=== PATIENT | female | born 1975 | race Caucasian/White ===

== ENCOUNTER 2016-05-14 23:45 | Emergency (ER) | payer OTHER ==
--- NOTE | ~2016-05-14 | CR72 ---
[facility]. [facility] A Service of [facility] & [facility] RADIOLOGY TEXT RESULTS PATIENT: DANDY ESTES LOCATION: SED : 75 UNIT #: [id number] AGE: [address]: Willie Gonzalez MD SEX: F ORDER DR: [id number] [address] [address] [id number] E MR#: [id number] Acc #: [id number] NAME: DANDY ESTES : 1975 SEX: F STUDY DATE/TIME: 05/15/2016 0:48 UNIT: SED ROOM: STUDY DESCRIPTION: CR Chest Single View Portable Attending Physician: Willie Gonzalez M.D. Ordering Physician: Willie Gonzalez M.D. Primary Care Physician: Primary Care Physician No MEDICAL IMAGING REPORT This report is preliminary unless electronic signature is present. EXAM AP portable chest 05/15/2016 00:48 HISTORY Dizziness, headache, nausea for 1 day. Fell off toilet 30 minutes prior to arrival. Right side head pain. COMPARISON None. FINDINGS A single AP portable view of the chest shows both lungs to be clear. The heart is normal in size. The mediastinal contour is normal. No significant bone abnormalities are seen. IMPRESSION Normal portable chest. Dictated by... Sherrill Hyde M.D. THIS IS AN ELECTRONICALLY VERIFIED REPORT Sherrill Hyde M.D. at 05/16/2016 1:51 AM MG/marilia TD: 05/15/2016 11:10 JOB #: [id number] MEDICAL IMAGING REPORT
--- NOTE | ~2016-05-14 | EKG ---
PATIENT: DANDY ESTES UNIT #: [id number] Ventricular Rate: 74 BPM Atrial Rate: 74 BPM P-R Interval: 160 ms QRS Duration: 80 ms Q-T Interval: 404 ms QTC Calculation(Bezet): 448 ms P Stevenson: 70 degrees Calculated R Stevenson: 46 degrees Calculated T Stevenson: 41 degrees Diagnosis Line: Normal sinus rhythm Diagnosis Line: Normal ECG Diagnosis Line: When compared with ECG of 06-MAR-2016 08:23, Diagnosis Line: No significant change was found Diagnosis Line: Confirmed by ABELARDO WALLACE MD ([id number]) on Diagnosis Line: 05/16/2016 11:22:00 AM INTERPRETING MD: MADISON ZAMARRIPA
--- NOTE | ~2016-05-14 | CT71 ---
[facility] A Service [facility] RADIOLOGY TEXT RESULTS PATIENT: DANDY ESTES LOCATION: SED : 75 UNIT #: [id number] AGE: [address]: Willie Gonzalez MD SEX: F ORDER DR: [id number] [place] [id number] E MR#: [id number] Acc #: [id number] NAME: DANDY ESTES : 1975 SEX: F STUDY DATE/TIME: 05/15/2016 0:45 UNIT: SED ROOM: STUDY DESCRIPTION: CT Head Wo Contrast Attending Physician: Willie Gonzalez M.D. Ordering Physician: Willie Gonzalez M.D. Primary Care Physician: No Primary Care Physician MEDICAL IMAGING REPORT This report is preliminary unless electronic signature is present. EXAM Noncontrast CT head. DATE 05/15/2016 at 0045 HISTORY 41-year-old female with dizziness, headache, nausea for 1 day. Fell off toilet 30 minutes prior to arrival. Right side head pain. COMPARISON None TECHNIQUE Axial noncontrast images were obtained from the skull base to the vertex. This CT exam was performed with one or more of the following radiation dose reduction techniques: automatic exposure control, adjustment of mA and/or kV according to patient size, and iterative reconstruction. FINDINGS Ventricular size and configuration are normal. There is no evidence of acute infarct or hemorrhage. There are no extraaxial fluid collections. No mass lesion or mass effect is seen. There are no skull fractures. IMPRESSION Normal noncontrast head CT. Dictated by... Sherrill Hyde M.D. [facility] A Service [facility] RADIOLOGY TEXT RESULTS PATIENT: DANDY ESTES LOCATION: SED : 75 UNIT #: [id number] AGE: [address]: Willie Gonzalez MD SEX: F ORDER DR: THIS IS AN ELECTRONICALLY VERIFIED REPORT Sherrill Hyde M.D. at 05/16/2016 1:51 AM MG/jaun TD: 05/15/2016 11:24 JOB #: [id number] MEDICAL IMAGING REPORT
[~2016-05-14 23:45] MED LIST: AMOXICILLIN PO; BACTRIM DS TABL1 TA1 PO; CYMBALTA; NO MEDICATIONS; PERCOCET 5-3251 TAB PO
[2016-05-15 00:20] LABS: BASOPHIL# 0.1 X10e3 (0-0.3); BASOPHIL% 0.7 % (0-2.5); EOSINOPHIL# 0.2 X10e3 (0-0.7); EOSINOPHIL% 2.8 % (0.0-7.0); HEMATOCRIT 36.7 % (35.0-45.0); HEMOGLOBIN 12.8 gm/dL (12.0-16.0); LYMPHOCYTE# 2.1 X10e3 (1.0-3.5); LYMPHOCYTE% 25.8 % (17.0-45.0); MEAN CELL VOLUME 89.5 FL (83-96); MEAN CORPUSCULAR HEMOGLOBIN 31.3 PG (28-34); MEAN CORPUSCULAR HGB CONC 34.9 g/dL (30-36); MEAN PLATELET VOLUME 7.3 FL (6.5-11.5); MONOCYTE# 0.8 X10e3 (0-1.0); MONOCYTE% 10.2 % (3.0-12.0); NEUTROPHIL% 60.5 % (40-75); PLATELET COUNT 377 X10e3 (140-420); RED CELL DISTRIBUTION WIDTH 12.7 % (11.0-15.5); WHITE BLOOD COUNT 8.2 X10e3 (4.0-10.5)
[2016-05-15 00:21] LABS: DIFF IND NO
[2016-05-15 00:36] LABS: POC - CKMB <1.0 ng/mL (0.0-7.9); POC - MYOGLOBIN 50.9 ng/mL (0.0-169.0); POC - TROPONIN <0.05 ng/mL (<=0.05)
[2016-05-15 00:37] LABS: ALKALINE PHOSPHATASE 43 U/L (32-92); ALT (SGPT) 13 U/L (10-40); AST (SGOT) 16 U/L (10-42); BILIRUBIN,TOTAL 0.3 mg/dL (0.2-2.0); BLOOD UREA NITROGEN 11 mg/dL (9-23); BUN/CREATININE RATIO 12.22; CALCIUM SERUM 8.7 mg/dL (8.4-10.2); CARBON DIOXIDE 29 mmol/L (22-31); CHLORIDE 101 mmol/L (100-111); CREATININE SERUM 0.9 mg/dL (0.6-1.4); GLOM FILT RATE Estimated ABOVE60 mL/min (>60); GLUCOSE FASTING 106 mg/dL (70-110); POTASSIUM 3.3 mmol/L (3.5-5.1); PROTEIN TOTAL SERUM 7.3 g/dL (6.0-8.3); SODIUM 138 mmol/L (135-145)
[2016-05-15 00:39] LABS: BILIRUBIN, DIRECT <0.1 mg/dL (0.0-0.2); BILIRUBIN,INDIRECT 0.2 mg/dL (0.0-0.9)
[2016-05-15 00:48] LABS: URINE SOURCE CLEAN CATCH
[2016-05-15 00:51] LABS: URINE APPEARANCE CLEAR; URINE BILIRUBIN NEG (NEG); URINE BLOOD 2+ (NEG); URINE COLOR YELLOW; URINE GLUCOSE NEG (NORM); URINE KETONE NEG (NEG); URINE LEUKOCYTE ESTERASE NEG (NEG); URINE NITRATE NEG (NEG); URINE PROTEIN NEG (NEG); URINE SPECIFIC GRAVITY 1.015 (1.003-1.035); URINE UROBILINOGEN 0.2 MG/DL (NORM)
[2016-05-15 00:52] LABS: MICRO INDICATED? YES
[2016-05-15 00:53] LABS: CULTURE INDICATED? NO; URINE BACTERIA NEG (NEG); URINE SQUAMOUS EPITHELIAL CELL OCCAS /[HPF]; URINE WBC 0-2 /[HPF] (0-5)
[2016-05-15 00:58] LABS: AMPHETAMINE NEG (NEG); BARBITURATES NEG (NEG); BENZODIAZEPINES NEG (NEG); COCAINE NEG (NEG); MARIJUANA NEG (NEG); OPIATES NEG (NEG); TRICYCLIC ANTIDEPRESSANTS NEG (NEG); U METHADONE NEG (NEG)
== END 2016-05-15 01:31 | disposition home or self-care (01) ==
LOC: SED 23:45
PROVIDERS: Emergency Medicine
DX: H81.10 Benign paroxysmal vertigo, unspecified ear (principal)
CPT/HCPCS: 36415; 70450; 71010; 80048; 80076; 80307; 81003; 82553; 82947; 83874; 84484; 84703; 85025; 93005; 96361; 96374; 99284; J2405

== ENCOUNTER 2016-08-08 22:00 | Emergency (ER) | payer OTHER ==
--- NOTE | ~2016-08-08 | EKG ---
PATIENT: DANDY ESTES UNIT #: [id number] Ventricular Rate: 77 BPM Atrial Rate: 77 BPM P-R Interval: 156 ms QRS Duration: 82 ms Q-T Interval: 392 ms QTC Calculation(Bezet): 443 ms P Amma: 32 degrees Calculated R Amma: 43 degrees Calculated T Amma: 29 degrees Diagnosis Line: Normal sinus rhythm Diagnosis Line: Normal ECG Diagnosis Line: When compared with ECG of 15-MAY-2016 00:00, Diagnosis Line: No significant change was found Diagnosis Line: Confirmed by RAMIRO PALOMINO MD ([id number]) on 08/09/2016 Diagnosis Line: 7:09:27 PM INTERPRETING MD: CANDELARIO ZAMARRIPA
[2016-08-08] MEDS ORDERED: LAMISIL (22:20)
[2016-08-09 00:12] LABS: BASOPHIL# 0.1 X10e3 (0-0.3); BASOPHIL% 0.6 % (0-2.5); EOSINOPHIL# 0.3 X10e3 (0-0.7); EOSINOPHIL% 3.4 % (0.0-7.0); HEMATOCRIT 38.8 % (35.0-45.0); HEMOGLOBIN 13.7 gm/dL (12.0-16.0); LYMPHOCYTE# 2.6 X10e3 (1.0-3.5); LYMPHOCYTE% 31.5 % (17.0-45.0); MEAN CELL VOLUME 90.3 FL (83-96); MEAN CORPUSCULAR HEMOGLOBIN 31.9 PG (28-34); MEAN CORPUSCULAR HGB CONC 35.3 g/dL (30-36); MEAN PLATELET VOLUME 7.3 FL (6.5-11.5); MONOCYTE# 0.8 X10e3 (0-1.0); MONOCYTE% 9.1 % (3.0-12.0); NEUTROPHIL# 4.6 X10e3 (1.5-7.1); NEUTROPHIL% 55.4 % (40-75); PLATELET COUNT 351 X10e3 (140-420); RED BLOOD COUNT 4.29 X10e (3.90-5.30); RED CELL DISTRIBUTION WIDTH 13.9 % (11.0-15.5); WHITE BLOOD COUNT 8.3 X10e3 (4.0-10.5)
[2016-08-09 00:12] LABS: URINE SOURCE CLEAN CATCH
[2016-08-09 00:15] LABS: DIFF IND NO
[2016-08-09 00:15] LABS: URINE APPEARANCE CLEAR; URINE BILIRUBIN NEG (NEG); URINE BLOOD 1+ (NEG); URINE COLOR YELLOW; URINE GLUCOSE NEG (NORM); URINE KETONE NEG (NEG); URINE LEUKOCYTE ESTERASE NEG (NEG); URINE NITRATE NEG (NEG); URINE PH 7.5 (5-8); URINE PROTEIN NEG (NEG); URINE UROBILINOGEN 0.2 MG/DL (NORM)
[2016-08-09 00:17] LABS: MICRO INDICATED? YES
[2016-08-09 00:20] LABS: CULTURE INDICATED? NO; URINE BACTERIA NEG (NEG); URINE WBC 0-2 /[HPF] (0-5)
[2016-08-09 00:21] LABS: URINE SQUAMOUS EPITHELIAL CELL OCCAS /[HPF]
[2016-08-09 00:30] LABS: ALBUMIN SERUM 4.3 g/dL (3.5-5.0); BILIRUBIN,TOTAL 0.2 mg/dL (0.2-2.0); BUN/CREATININE RATIO 16.25; CALCIUM SERUM 9.3 mg/dL (8.4-10.2); CREATININE SERUM 0.8 mg/dL (0.6-1.4); GLOM FILT RATE Estimated 91.7 mL/min (>60); POTASSIUM 3.5 mmol/L (3.5-5.1); PROTEIN TOTAL SERUM 7.6 g/dL (6.0-8.3)
[2016-08-09 00:33] LABS: POC - CKMB <1.0 ng/mL (0.0-7.9); POC - TROPONIN <0.05 ng/mL (<=0.05)
== END 2016-08-09 01:16 | disposition home or self-care (01) ==
LOC: SED 22:00
PROVIDERS: Physician Assistant
DX: R60.0 Localized edema (principal); R03.0 Elevated blood-pressure reading, without diagnosis of hypertension
CPT/HCPCS: 36415; 80053; 81003; 82553; 83880; 84443; 84484; 84703; 85025; 93005; 99283